=== PATIENT | female | born 1945 | race African-American/Black ===

== ENCOUNTER → 2018-03-31 | Day surgery (SDC) | payer OTHER ==
--- NOTE | 2018-03-31 12:09 | OP ---
DATE OF OPERATION: 03/31/2018 PREOPERATIVE DIAGNOSIS: Right breast microcalcifications. POSTOPERATIVE DIAGNOSIS: Right breast microcalcifications. PROCEDURE: Left breast stereotactic needle biopsy with clips. SURGEON: Kimberly Vázquez MD ANESTHESIA: Local. COMPLICATIONS: None. DISPOSITION: Stable. This is a sterile procedure. INDICATIONS: The patient had a screening mammography that noted cluster microcalcifications in the upper outer right breast. My recommendation was needle biopsy. The procedure was discussed with her including the need for a clip. PROCEDURE IN DETAIL: The patient was brought to [facility] [place] and laid prone on the Lorad table. Using the cranial approach, the calculations in the upper outer right breast were identified. A sterile prep was obtained. A target was chosen. There was a positive stroke margin. Using Betadine with 1% lidocaine, a 10-gauge Suros device was used to take several cores in this area. Cores showed calcification within them. These were handled using calcification protocol. A clip was deployed in the area. Hemostasis assured with direct pressure then closed with Steri-Strips. She tolerated the procedure well and left the breast imaging center in good condition. KIMBERLY VÁZQUEZ M.D. [id number]
--- NOTE | 2018-04-02 11:12 | PATH ---
Surgical Pathology Report Patient Name: JASE KEY [facility]. Rec. #: [id number] /Age/Gender: 1945 (Age: 72) / F Account: [id number] Location: [facility] Taken: 03/31/2018 Received: 03/31/2018 Reported: 04/02/2018 Physicians: Kimberly Rodríguez M.D. Specimen(s) Received A: RIGHT BREAST SPECIMEN WITH CALCIFICATIONS B: RIGHT BREAST SPECIMEN WITHOUT CALCIFICATIONS Clinical History Mammographic findings: Suspicious microcalcification Final Diagnosis A. 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 B. BREAST, RIGHT, WITHOUT CALCIFICATIONS, STEREOTACTIC BIOPSY: BENIGN BREAST TISSUE. Electronically Signed Amina Jensen M.D. Gross Description A. received in formalin, labeled "right breast with calcifications" are six cores of light balbuena and yellow-balbuena tissue ranging from 1.5-2.5 cm in length with a diameter of up to 0.3 cm. Entirely submitted in two cassettes. B. received in formalin, labeled "right breast without calcifications" are two cores of light balbuena and yellow-balbuena tissue measuring 1.8 cm and 2.8 cm in length with a diameter up to 0.3 cm. Entirely submitted in one cassette. Time to formalin fixation: 5 minutes Total formalin fixation time: Approximately 8 hours. ebram/03/31/2018
== END | disposition home or self-care (01) ==
LOC: FMAMMOTONE 09:39
PROVIDERS: ATTEND Surgery
PROC: 0HBT3ZX Excision of Right Breast, Percutaneous Approach, Diagnostic (ICD-10-PCS; principal; 2018-03-31)
DX: N60.91 Unspecified benign mammary dysplasia of right breast (principal); N64.89 Other specified disorders of breast; R92.1 Mammographic calcification found on diagnostic imaging of breast
CPT/HCPCS: 19081; 87899; 88305-TC; A4648

== ENCOUNTER 2018-05-14 07:28 | Day surgery (SDC) | payer OTHER ==
[2018-05-13 15:34] VITALS: BMI 25.7
[2018-05-14] MEDS ORDERED: PROPOFOL 20 ML ONE ×2 (10:30→11:09)
[2018-05-14] MEDS ORDERED: MIDAZOLAM HCL 2 MG/2 ML SINGLE DOSE VIAL ONE (10:30)
[2018-05-14] MEDS ORDERED: LIDOCAINE HCL 1%, 10 MG/ML (20ML VIAL) ONE (10:31)
[2018-05-14] MEDS ORDERED: ceFAZolin SODIUM 1 GM VIAL IVPB ONE (10:54)
[2018-05-14] MEDS ORDERED: KETOROLAC TROMETHAMINE 30 MG/1 ML VIAL ONE (11:03)
[2018-05-14] MEDS ORDERED: LIDOCAINE HCL 1%, 10 MG/ML (20ML VIAL) INF ONE ×2 (11:12)
[2018-05-14] MEDS ORDERED: DEXAMETHASONE SOD PHOSPHATE 4 MG/1 ML VIAL ONE (11:30)
--- NOTE | 2018-05-14 12:33 | OP ---
DATE OF OPERATION: 05/14/2018 PREOPERATIVE DIAGNOSIS: Right breast atypical duct hypoplasia. POSTOPERATIVE DIAGNOSIS: Right breast atypical duct hypoplasia. PROCEDURE: Right breast wide localized lumpectomy. SURGEON: Kimberly Vázquez MD ANESTHESIA: Local IV sedation. ESTIMATED BLOOD LOSS: Minimal. COMPLICATIONS: None. This is a sterile procedure. INDICATION FOR PROCEDURE: Patient presented with a screening mammography that noted cluster microcalcifications in the outer right breast, and a stereotactic needle biopsy showed atypia. My recommendation was an excision of the area to make sure there was no further of the lesion. The procedure was discussed with all of the questions answered. PROCEDURE IN DETAIL: The patient was brought to [facility] [place] in [place]. She was brought to mammography where a wire was used to localize the clip in the outer right breast as well as the adjacent calcifications. The patient was brought up to the operating room, and after IV sedation and IV antibiotics, her right breast was prepped and draped in the usual sterile fashion. The area in the outer right breast was anesthetized with 1% lidocaine without epinephrine. A radial incision was made in the 9 o'clock location to include the entry site of the wire, and this was excised en bloc and tagged with a long stitch lateral, short stitch superior. Sent for a specimen radiograph. Hemostasis was assured with electrocautery. Specimen radiograph showed the clip and wire to be intact in the specimen with the calcifications though slightly toward the edge also within the specimen. These were all sent for pathology for permanent section. Once hemostasis was assured, the parenchyma was approximated with interrupted 2-0 Vicryl, skin approximated with interrupted 3-0 Vicryl and running Prolene. A sterile dressing with Tegaderm and 4 x 4 was applied. She tolerated the procedure well and was taken to recovery in good condition. KIMBERLY VÁZQUEZ M.D. [id number]
[2018-05-14 15:05] VITALS: BP 153/84; PULSE 58; TEMP 97.8
--- NOTE | 2018-05-18 09:52 | PATH ---
Surgical Pathology Report Patient Name: JASE KEY [facility] Rec. #: [id number] /Age/Gender: 1945 (Age: 72) / F Account: [id number] Location: [facility] SUR[facility] Taken: 05/14/2018 Received: 05/14/2018 Reported: 05/18/2018 Physicians: Kimberly Rodríguez M.D. Specimen(s) Received RIGHT BREAST LUMPECTOMY Clinical History ADH Final Diagnosis BREAST, RIGHT, LUMPECTOMY: DUCTAL CARCINOMA IN SITU (DCIS), MICROPAPILLARY AND CRIBRIFORM TYPES, LOW NUCLEAR GRADE WITH ASSOCIATED MICROCALCIFICATIONS, PRESENT IN FOUR OF SEVEN SLIDES (4/7). DCIS MEASURES 5 MM IN GREATEST DIMENSION, MICROSCOPICALLY. SURGICAL MARGINS ARE UNINVOLVED BY CARCINOMA; CARCINOMA IS 1 MM FROM CLOSEST SUPERIOR, MEDIAL AND DEEP MARGINS. SKIN IS PRESENT AND UNINVOLVED BY DCIS. SURROUNDING BREAST PARENCHYMA SHOWS ATYPICAL DUCTAL HYPERPLASIA AND FLAT EPITHELIAL ATYPIA WITH ASSOCIATED MICROCALCIFICATIONS. PRIOR BIOPSY SITE CHANGES ARE PRESENT. PATHOLOGIC STAGE (pTNM): pTis pNx. SEE CASE SUMMARY BELOW. Comments DCIS of the Breast: Surgical Pathology Cancer Case Summary (Based on AJCC TNM 8 th edition) Procedure _X_ Excision (less than total mastectomy) Specimen Laterality _X_ Right Size (Extent) of DCIS Estimated size (extent) of DCIS (greatest dimension using gross and microscopic evaluation): at least (millimeters) _5_ mm Number of blocks with DCIS: _4_ Number of blocks examined: _7_ Histologic Type _X_ Ductal carcinoma in situ Architectural Patterns _X_ Cribriform _X_ Micropapillary Nuclear Grade _X_ Grade I (low) Necrosis _X_ Not identified Margins _X_ Uninvolved by DCIS Distance from closest margin (millimeters): _1__ mm Specify closest margin: Superior, medial, and deep Regional Lymph Nodes _X_ No lymph nodes submitted or found Pathologic Stage Classification (pTNM, AJCC 8th Edition) Primary Tumor (pT) _X_ pTis (DCIS): Ductal carcinoma in situ Category (pN) _X_ pN0: Regional lymph nodes cannot be assessed Microcalcifications _X_ Present in DCIS _X_ Present in nonneoplastic tissue Comment: ER/VT pending and will be reported separately. Electronically Signed Debbi DasilvaD. Addendum Reported: 05/19/2018 Addendum Diagnosis Results of Estrogen Receptor (ER) and Progesterone Receptor (VT) studies performed on block "6" at [facility] are as follows: ER (clone [id number] mouse monoclonal antibody by [employer]): 100% nuclear staining with strong intensity (Positive). VT (clone16 mouse monoclonal antibody by [employer]): 25% nuclear staining with moderate to strong intensity (Positive). Positive and negative controls (internal if applicable) show appropriate results. Formalin fixation and cold ischemic times are within current ASCO/CAP recommendations for ER, VT and Her2 testing. Debbi Hargrove M.D. Gross Description Received fresh on an AccuGrid, labeled "right breast lumpectomy," is a 3.5 x 3.3 x 2.0 cm. balbuena-yellow, irregular, portion of fibroadipose tissue with a needle localization wire present. There is a short suture marking the superior aspect and a long suture marking the lateral aspect, per the surgeon. The anterior surface displays a 1.0 x 0.2 cm. balbuena, elliptical, unremarkable portion of skin. The specimen is inked as follows: Superior blue; inferior green; lateral red; medial yellow; deep black. The specimen is serially sectioned from anterior to deep. Sectioning reveals foci of white fibrous tissue. There is a segovia metallic biopsy clip identified. No mass is identified. The specimen is entirely and sequentially submitted in 7 cassettes with the skin in cassette 1 and the deep margin in cassette 7 (biopsy clip in cassettes 4-5). Time to formalin fixation: 52 minutes Total formalin fixation time: Approximately 6 hours. 05/14/2018 [facility]05/14/2018
== END 2018-05-14 15:05 | disposition home or self-care (01) ==
LOC: JASU-SURG 07:28
PROVIDERS: ATTEND Surgery
PROC: 0HBT0ZZ Excision of Right Breast, Open Approach (ICD-10-PCS; principal; 2018-05-14 10:00)
DX: D05.11 Intraductal carcinoma in situ of right breast (principal)
CPT/HCPCS: 19281; 88307-TC; 88342-TC; 94760

== ENCOUNTER 2018-06-15 08:05 | Day surgery (SDC) | payer OTHER ==
[2018-06-14 15:28] VITALS: BMI 25.7
[~2018-06-15 08:05] MED LIST: LIDOCAINE HCL 1%, 10 MG/ML (20ML VIAL) INF ONE; ceFAZolin SODIUM 1 GM VIAL IVPB ONE
[2018-06-15] MEDS ORDERED: PROPOFOL 20 ML ONE ×4 (10:22)
[2018-06-15] MEDS ORDERED: LIDOCAINE HCL/PF 2% SDV 5ML VIAL ONE (10:22)
[2018-06-15] MEDS ORDERED: MIDAZOLAM HCL 2 MG/2 ML SINGLE DOSE VIAL ONE (10:22)
[2018-06-15] MEDS ORDERED: LIDOCAINE HCL 1%, 10 MG/ML (20ML VIAL) ONE ×2 (10:27→11:34)
[2018-06-15] MEDS ORDERED: LIDOCAINE HCL 2% JELLY (5 ML/TUBE) ONE (10:28)
[2018-06-15] MEDS ORDERED: ceFAZolin SODIUM 1 GM VIAL IVPB ONE (11:19)
[2018-06-15] MEDS ORDERED: LIDOCAINE HCL 1%, 10 MG/ML (20ML VIAL) INF ONE (11:31)
--- NOTE | 2018-06-15 11:53 | HP ---
History & Physical Update - History History: No Change - Physical Physical: No Change - Assessment Assessment: No Change - Plan Plan: No Change
--- NOTE | 2018-06-15 13:09 | OP ---
DATE OF OPERATION: 06/15/2018 PREOPERATIVE DIAGNOSIS: Right breast ductal carcinoma in situ. POSTOPERATIVE DIAGNOSIS: Right breast ductal carcinoma in situ. PROCEDURE: Right breast re-excisional lumpectomy. SURGEON: Kimberly Rordíguez MD ANESTHESIA: Local and IV sedation. ESTIMATED BLOOD LOSS: Minimal. COMPLICATIONS: None. This was a sterile procedure. INDICATION FOR PROCEDURE: Patient had a lumpectomy for atypia, that noted a 5-mm low-grade DCIS with several positive margins and specifically superiorly, medially, and posteriorly. Therefore, my recommendation was a re-excision lumpectomy. The procedure was discussed with all her questions answered. PROCEDURE IN DETAIL: Patient was brought to [facility] and taken into the operating room, and after IV sedation and IV antibiotics, the right breast was prepped and draped in usual sterile fashion. The prior lumpectomy in the outer right breast was anesthetized with 1% lidocaine without epinephrine. An ellipse of skin was taken to include the prior incision, and an en bloc lumpectomy was performed, tagged with a long stitch lateral, short stitch superior. This was sent to Pathology for permanent section. Hemostasis was assured with electrocautery. The parenchyma was approximated with interrupted 2-0 Vicryl, skin approximated with interrupted 3-0 Vicryl and running 4-0 Prolene. A sterile dressing with Tegaderm and 4 x 4's applied. She tolerated the procedure well, was taken to Recovery in good condition. Martin [id number]
[2018-06-15] MEDS ORDERED: IBUPROFEN 400 MG TABLET (FP) PO ONE (13:34)
[2018-06-15 17:04] VITALS: BP 140/74; PULSE 54; TEMP 97.9
--- NOTE | 2018-06-17 16:37 | PATH ---
Surgical Pathology Report Patient Name: JSAE KEY [facility]. Rec. #: [id number] /Age/Gender: 1945 (Age: 72) / F Account: [id number] Location: [facility] SURG[facility] Taken: 06/15/2018 Received: 06/15/2018 Reported: 06/17/2018 Physicians: Kimberly Rodríguez M.D. Specimen(s) Received RIGHT BREAST LUMPECTOMY RE-EXCISION Clinical History DCIS Final Diagnosis BREAST, RIGHT, RE-EXCISION LUMPECTOMY: BENIGN BREAST TISSUE WITH PROLIFERATIVE FIBROCYSTIC CHANGES, ASSOCIATED MICROCALCIFICATIONS, AND CHANGES OF PRIOR PROCEDURE/BIOPSY. Electronically Signed Debbi Hargrove M.D. Gross Description Received in formalin, labeled "right breast reexcision lumpectomy," is a 6.1 x 5.1 x 2.7 cm. balbuena-yellow, irregular, portion of fibroadipose tissue. There is no needle localization wire present. There is a short suture marking the superior aspect and a long suture marking the lateral aspect, per the surgeon. The anterior surface displays a 3.0 x 0.7 cm brown, elliptical, unremarkable portion of skin. The specimen is inked as follows: Superior blue; inferior green; lateral red; medial yellow; deep black. The specimen is serially sectioned from lateral to medial. Sectioning reveals a central previous biopsy cavity surrounded by firm fibrosis. [employer] sections are submitted in 12 cassettes as follows: [id number] submitted fibrous tissue (3-0-iscppoxc skin, superior and inferior margins; 6-includes superior, inferior and deep margins; 7-includes skin, superior and inferior margins; 8-includes superior, inferior and deep margins; 9-includes skin, superior and inferior margins; 10-includes superior, inferior and deep margins); 11-lateral margin; 12-medial margin. Time to formalin fixation: 7 minutes Total formalin fixation time: Approximately 6 hours. 06/15/201806/15/2018
== END 2018-06-15 14:00 | disposition home or self-care (01) ==
LOC: JASU-SURG 08:05
PROVIDERS: ATTEND Surgery
PROC: 0HBT0ZZ Excision of Right Breast, Open Approach (ICD-10-PCS; principal; 2018-06-15 10:00)
DX: D05.91 Unspecified type of carcinoma in situ of right breast (principal)
CPT/HCPCS: 88307-TC